=== PATIENT | female | born 1945 | race Caucasian/White ===

== ENCOUNTER 2022-05-09 14:47 | Inpatient (IN) | payer MEDICARE, MEDICAID ==
[2022-05-09 19:31] LABS: SARS-CoV-2 NAA Rapid Test Not Detected (NotDetected)
[2022-05-09] MEDS: Acetaminophen 325 MG TAB PO PRN (21:06)
[2022-05-09] MEDS ORDERED: Acetaminophen 325 MG TAB PO PRN (21:35)
[2022-05-10] MEDS: Acetaminophen 325 MG TAB PO PRN ×2 (02:42→09:51)
[2022-05-10] MEDS ORDERED: Calcium Carbonate 600 MG + Vit D TAB PO SCH (09:00)
[2022-05-10] MEDS: Calcium Carbonate + Vit D 500 MG TAB PO SCH ×2 (09:07→21:26)
[2022-05-10] MEDS: Aspirin 325 MG TAB PO SCH (09:07)
[2022-05-10] MEDS: Saccharomyces boulardii 250 MG CAP PO SCH (09:07)
[2022-05-10 11:24] VITALS: BMI 20.5
[2022-05-11] MEDS: Acetaminophen 325 MG TAB PO PRN ×2 (02:59→22:06)
[2022-05-11] MEDS: Calcium Carbonate + Vit D 500 MG TAB PO SCH ×2 (09:30→20:43)
[2022-05-11] MEDS: Saccharomyces boulardii 250 MG CAP PO SCH (09:30)
[2022-05-11] MEDS: Aspirin 325 MG TAB PO SCH (09:30)
[2022-05-12] MEDS: Calcium Carbonate + Vit D 500 MG TAB PO SCH ×2 (10:06→21:02)
[2022-05-12] MEDS: Saccharomyces boulardii 250 MG CAP PO SCH (10:06)
[2022-05-12] MEDS: Aspirin 325 MG TAB PO SCH (10:07)
[2022-05-13] MEDS: Acetaminophen 325 MG TAB PO PRN (01:33)
[2022-05-13] MEDS: Calcium Carbonate + Vit D 500 MG TAB PO SCH ×2 (09:00→20:40)
[2022-05-13] MEDS: Saccharomyces boulardii 250 MG CAP PO SCH (09:00)
[2022-05-13] MEDS: Aspirin 325 MG TAB PO SCH (09:00)
[2022-05-14] MEDS: Acetaminophen 325 MG TAB PO PRN (00:47)
[2022-05-14] MEDS: Saccharomyces boulardii 250 MG CAP PO SCH (09:36)
[2022-05-14] MEDS: Aspirin 325 MG TAB PO SCH (09:36)
[2022-05-14] MEDS: Calcium Carbonate + Vit D 500 MG TAB PO SCH ×2 (09:36→20:39)
[2022-05-15] MEDS: Saccharomyces boulardii 250 MG CAP PO SCH (09:42)
[2022-05-15] MEDS: Calcium Carbonate + Vit D 500 MG TAB PO SCH ×2 (09:42→20:27)
[2022-05-15] MEDS: Aspirin 325 MG TAB PO SCH (09:42)
[2022-05-16] MEDS: Aspirin 325 MG TAB PO SCH (09:43)
[2022-05-16] MEDS: Calcium Carbonate + Vit D 500 MG TAB PO SCH ×3 (09:43→22:15)
[2022-05-16] MEDS: Saccharomyces boulardii 250 MG CAP PO SCH (09:43)
[2022-05-16] MEDS: Acetaminophen 325 MG TAB PO PRN (22:15)
[2022-05-17] MEDS: Saccharomyces boulardii 250 MG CAP PO SCH (08:43)
[2022-05-17] MEDS: Aspirin 325 MG TAB PO SCH (08:43)
[2022-05-17] MEDS: Calcium Carbonate + Vit D 500 MG TAB PO SCH ×2 (08:43→20:40)
[2022-05-18] MEDS: Calcium Carbonate + Vit D 500 MG TAB PO SCH ×2 (08:46→21:09)
[2022-05-18] MEDS: Saccharomyces boulardii 250 MG CAP PO SCH (08:46)
[2022-05-18] MEDS: Aspirin 325 MG TAB PO SCH (08:46)
[2022-05-19] MEDS: Saccharomyces boulardii 250 MG CAP PO SCH (08:52)
[2022-05-19] MEDS: Calcium Carbonate + Vit D 500 MG TAB PO SCH ×2 (08:52→21:06)
[2022-05-19] MEDS: Aspirin 325 MG TAB PO SCH (08:52)
[2022-05-20] MEDS: Acetaminophen 325 MG TAB PO PRN (01:29)
[2022-05-20] MEDS: Aspirin 325 MG TAB PO SCH (08:31)
[2022-05-20] MEDS: Calcium Carbonate + Vit D 500 MG TAB PO SCH ×2 (08:31→21:29)
[2022-05-20] MEDS: Saccharomyces boulardii 250 MG CAP PO SCH (08:31)
[2022-05-21] MEDS: Acetaminophen 325 MG TAB PO PRN (00:43)
[2022-05-21] MEDS: Saccharomyces boulardii 250 MG CAP PO SCH (08:50)
[2022-05-21] MEDS: Aspirin 325 MG TAB PO SCH (08:50)
[2022-05-21] MEDS: Calcium Carbonate + Vit D 500 MG TAB PO SCH ×2 (08:50→20:27)
[2022-05-22] MEDS: Acetaminophen 325 MG TAB PO PRN (03:30)
[2022-05-22] MEDS: Calcium Carbonate + Vit D 500 MG TAB PO SCH ×2 (08:39→21:42)
[2022-05-22] MEDS: Saccharomyces boulardii 250 MG CAP PO SCH (08:39)
[2022-05-22] MEDS: Aspirin 325 MG TAB PO SCH (08:39)
[2022-05-23] MEDS: Saccharomyces boulardii 250 MG CAP PO SCH (09:17)
[2022-05-23] MEDS: Calcium Carbonate + Vit D 500 MG TAB PO SCH (09:17)
[2022-05-23] MEDS: Aspirin 325 MG TAB PO SCH (09:17)
[2022-05-23] MEDS: Acetaminophen 325 MG TAB PO PRN (11:21)
[2022-05-23 17:22] VITALS: BP 126/75; TEMP 97.9
== END 2022-05-23 16:05 | disposition home or self-care (01) | DRG 561 ==
LOC: BURMED 17:40
PROVIDERS: ADMIT Family Medicine; ATTEND Nurse Practitioner
DX: S72.001D Fracture of unspecified part of neck of right femur, subsequent encounter for closed fracture with routine healing (principal); Z20.822 Contact with and (suspected) exposure to COVID-19; R26.9 Unspecified abnormalities of gait and mobility; W19.XXXD Unspecified fall, subsequent encounter; Z98.890 Other specified postprocedural states; Z88.8 Allergy status to other drugs, medicaments and biological substances; Z85.3 Personal history of malignant neoplasm of breast
CPT/HCPCS: 87811; U0002